=== PATIENT | male | born 1950 | race Native Hawaiian/Other Pacific Islander ===

== ENCOUNTER 2016-07-11 10:45 | Outpatient (CLI) | payer OTHER ==
[2016-07-11 11:04] LABS: POTASSIUM 4.1 mmol/L (3.6-5.2); SODIUM 139 mmol/L (136-145)
== END 2016-07-11 22:50 | disposition home or self-care (01) ==
LOC: LABW 10:45
PROVIDERS: Internal Medicine Cardiovascular Disease
DX: I10 Essential (primary) hypertension (principal); R06.02 Shortness of breath; Z79.899 Other long term (current) drug therapy; Z51.81 Encounter for therapeutic drug level monitoring
CPT/HCPCS: 36415; 80048; 83880

== ENCOUNTER 2016-08-17 09:22 | Outpatient (CLI) | payer OTHER | END 2016-08-17 19:07 | disposition home or self-care (01) | LOC: LABW 09:22 | PROVIDERS: Internal Medicine Cardiovascular Disease | DX: E78.4 Other hyperlipidemia (principal); Z79.899 Other long term (current) drug therapy; Z51.81 Encounter for therapeutic drug level monitoring | CPT/HCPCS: 36415; 80061; 80076 ==

== ENCOUNTER 2019-02-25 11:16 | Outpatient (CLI) | payer OTHER | END 2019-02-25 23:00 | disposition home or self-care (01) | LOC: RESP 11:16 → OR 11:16 → RESP 23:00 → EDSTATUS 02-27 08:36 | DX: I42.8 Other cardiomyopathies (principal) | CPT/HCPCS: 93306 ==

== ENCOUNTER 2019-04-29 13:50 | Outpatient (CLI) | payer OTHER ==
[2019-04-29 14:19] LABS: POTASSIUM 4.1 mmol/L (3.6-5.2)
== END 2019-04-29 19:36 | disposition home or self-care (01) ==
LOC: LABW 13:50
PROVIDERS: Internal Medicine Cardiovascular Disease
DX: I42.8 Other cardiomyopathies (principal)
CPT/HCPCS: 36415; 80048; 83880

== ENCOUNTER 2020-04-18 07:37 | Outpatient (CLI) | payer OTHER ==
[2020-04-18 08:01] LABS: PLATELET COUNT 167 K/uL (142-355)
[2020-04-18 08:17] LABS: POTASSIUM 4.7 mmol/L (3.6-5.2)
== END 2020-04-18 19:11 | disposition home or self-care (01) ==
LOC: LABW 07:37
PROVIDERS: ATTEND Internal Medicine Cardiovascular Disease
DX: E78.49 Other hyperlipidemia (principal); I42.8 Other cardiomyopathies
CPT/HCPCS: 36415; 80048; 80061; 80076; 83880; 85027

== ENCOUNTER 2020-09-12 09:51 | Outpatient (CLI) | payer OTHER | END 2020-09-12 19:16 | disposition home or self-care (01) | LOC: RESP 09:51 | PROVIDERS: ATTEND Internal Medicine Cardiovascular Disease | DX: I42.8 Other cardiomyopathies (principal); I10 Essential (primary) hypertension; I25.10 Atherosclerotic heart disease of native coronary artery without angina pectoris ==

== ENCOUNTER 2021-04-24 20:49 | Emergency (ER) | payer OTHER ==
[~2021-04-24] VITALS: Ht 177.8 cm; Wt 99.8 kg
[2021-04-24 20:54] VITALS: TEMP 94
[2021-04-24 21:11] LABS: PLATELET COUNT 139 K/uL (142-355)
[2021-04-24 21:17] LABS: POTASSIUM 4.6 mmol/L (3.6-5.2)
== END 2021-04-24 22:30 | disposition expired ==
LOC: ED 20:54
PROVIDERS: Emergency Medicine Emergency Medical Services
PROC: 5A12012 Performance of Cardiac Output, Single, Manual (ICD-10-PCS; principal; 2021-04-24)
DX: I46.9 Cardiac arrest, cause unspecified (principal); E11.9 Type 2 diabetes mellitus without complications
CPT/HCPCS: 36415; 80053; 82550; 82948; 84484; 85027; 92950; 96374; 96375; 99285; J0171; J0282; J3490